=== PATIENT | male | born 1940 | race Caucasian/White ===

== ENCOUNTER 2017-08-20 07:14 | Outpatient (CLI) | payer MEDICARE, OTHER ==
[~2017-08-20] VITALS: Ht 180.3 cm; Wt 95.3 kg
[2017-08-20] MEDS ORDERED: ROSU20TA30 PO (15:39)
[2017-08-20] MEDS ORDERED: GABA-488 PO (15:55)
[2017-08-20] MEDS ORDERED: IBUP-1780 PO (15:55)
[2017-08-20] MEDS ORDERED: ASPI-586 PO (15:55)
[2017-08-20] MEDS ORDERED: METO-387 PO (15:55)
[2017-08-20] MEDS ORDERED: OMEP20CA12 PO (15:55)
== END 2017-08-20 15:57 ==
LOC: PREOP 07:14
PROVIDERS: ATTEND Surgery
DX: Z01.818 Encounter for other preprocedural examination (principal); K43.9 Ventral hernia without obstruction or gangrene

== ENCOUNTER 2017-08-26 07:17 | Day surgery (SDC) | payer MEDICARE ==
[~2017-08-26] VITALS: Ht 180.3 cm; Wt 95.3 kg
[~2017-08-26 07:17] MED LIST: ASPI-586 PO; GABA-488 PO; IBUP-1780 PO; METO-387 PO; OMEP20CA12 PO; ROSU20TA30 PO
[2017-08-26 07:40] VITALS: BP 160/81
--- NOTE | 2017-08-26 07:52 | Progress Note-Pre Operative ---
Pre-Operative Progress Note H&P Reviewed The H&P was reviewed, patient examined and no changes noted. Date Seen by Provider: Aug 17, 2017 Time Seen by Provider: 16:00 Date H&P Reviewed: Aug 26, 2017 Time H&P Reviewed: 07:52 Pre-Operative Diagnosis: Ventral hernia SREEDHAR VEGA MD Aug 26, 2017 7:52 am
[2017-08-26 07:53] LABS: BASOPHILS % (AUTO) 1 % (0-10); EOSINOPHILS # (AUTO) 0.1 10^3/uL (0.0-0.3); EOSINOPHILS % (AUTO) 2 % (0-10); HEMATOCRIT 38 % (40-54); HEMOGLOBIN 13.4 G/DL (13.3-17.7); LYMPHOCYTES % (AUTO) 35 % (12-44); MEAN CORPUSCULAR HEMOGLOBIN 33 PG (25-34); MEAN CORPUSCULAR HGB CONC 35 G/DL (32-36); MEAN CORPUSCULAR VOLUME 94 FL (80-99); MEAN PLATELET VOLUME 10.3 FL (7.4-10.4); MONOCYTES # (AUTO) 0.6 X 10^3 (0.0-1.0); MONOCYTES % (AUTO) 20 % (0-12); NEUTROPHILS # (AUTO) 1.3 X 10^3 (1.8-7.8); NEUTROPHILS % (AUTO) 43 % (42-75); PLATELET COUNT 140 10^3/uL (130-400); RED BLOOD COUNT 4.03 10^6/uL (4.35-5.85); RED CELL DISTRIBUTION WIDTH 12.3 % (10.0-14.5); WHITE BLOOD COUNT 2.9 10^3/uL (4.3-11.0)
[2017-08-26] MEDS ORDERED: ACETAMINOPHEN 500 MG TAB (TYLENOL) PO ONE ×2 (08:00→11:30)
[2017-08-26] MEDS ORDERED: ONDANSETRON 4 MG/2 ML (SDV) Z0FRAN IVP ONE (08:00)
[2017-08-26] MEDS ORDERED: oxyCODONE ER 10 MG (OxyCONTIN CR) TAB PO ONE ×2 (08:00→11:30)
[2017-08-26] MEDS ORDERED: FAMOTIDINE 20MG/2ML IV (PEPCID) IVP ONE (08:00)
[2017-08-26] MEDS ORDERED: CELECOXIB 100 MG (CeleBREX) CAP PO ONE ×2 (08:00→11:30)
[2017-08-26] MEDS ORDERED: PREGABALIN 75 MG (LYRICA) CAP PO ONE ×2 (08:00→11:30)
[2017-08-26] MEDS ORDERED: morphine INJ 10 MG/ML 1ML (SYR OR VIAL) IV PRN ×2 (08:00→11:30)
[2017-08-26] MEDS ORDERED: ceFAZolin 2 GM IV Premixed 50 ML IV ONE (08:00)
[2017-08-26 08:22] LABS: BAND NEUTROPHILS 0 %; LYMPHOCYTES % (MANUAL) 29 %; NEUTROPHILS % (MANUAL) 51 %
[2017-08-26] MEDS: LACTATED RINGERS 1,000 ML IV PRN ×2 (08:22→10:20)
[2017-08-26 08:23] LABS: BASOPHILS % (MANUAL) 1 %; ELLIPT/OVALOCYTES SLIGHT; EOSINOPHILS % (MANUAL) 3 %; MONOCYTES % (MANUAL) 16 %
[2017-08-26] MEDS ORDERED: KETAMINE HCL 100 MG/ML 5 ML VIAL ONE (09:32)
[2017-08-26] MEDS ORDERED: proPOfol 200 MG/20 ML (DIPRIVAN) VIAL IV ONE (09:32)
[2017-08-26] MEDS ORDERED: LIDOCAINE PF 0.5% 50 ML (XYLOCAINE) VIAL ONE (09:32)
[2017-08-26] MEDS ORDERED: DEXAMETHASONE 10 MG/ML (DECADRON) 1 ML VIAL ONE (09:32)
[2017-08-26] MEDS ORDERED: SEVOFLURANE (ULTANE) 15 ML INHAL SOLN ONE (09:32)
[2017-08-26] MEDS ORDERED: ROCURONIUM 50 MG/5 ML (ZEMURON) VIAL IV ONE ×2 (09:32→10:50)
[2017-08-26] MEDS ORDERED: MIDAZOLAM 2 MG/2 ML (VERSED) VIAL ONE (09:33)
[2017-08-26] MEDS ORDERED: BUP/EPI 0.5% 1:200,000 (SENSORCAINE) 30 ML VIAL ONE (09:36)
[2017-08-26] MEDS ORDERED: NEOSTIGMINE (BLOXIVERZ ) 1 MG/1ML 10 ML VIAL ONE (10:50)
[2017-08-26] MEDS ORDERED: GLYCOPYRROLATE 0.2 MG/ML (ROBINUL) 2 ML VIAL ONE (10:50)
--- NOTE | 2017-08-26 11:26 | Operative Report ---
Operative Report Date of Procedure/Surgery Aug 26, 2017 Surgeon (s) SREEDHAR VEGA MD Choir Singer (s): N/A Post-Operative Diagnosis Same Procedure Performed Robotic assisted repair with mesh Description of Procedure Anesthesia Type: General Estimated blood loss (mL): Minimal Specimen(s) collected/removed None Description of the Procedure Indication for the procedure: This gentleman presented with a symptomatic ventral hernia over his epigastric region. He was offered repair using minimally invasive technique robotic assistance and reinforcement with mesh. Informed consent was obtained after reviewing the operative details and complications of hematoma, infection of the mesh, recurrence of the hernia and cardiorespiratory dysfunction. Description of the procedure: He was placed supine on the operative table and general anesthesia induced using an endotracheal tube. 2 g of Ancef were ministered intravenously as prophylaxis against wound infection. Sequential compression devices were placed around his legs, to minimize the risk of venous thrombosis. Abdomen was prepared and draped in the usual sterile manner. Pneumoperitoneum was established using a Veress needle introduced over the left subcostal margin. Intra-abdominal pressure was maintained at 15 mmHg, using carbon dioxide insufflation. A 12 mm trocar was placed and anatomy visualized using the 30, a dimensional high-definition laparoscope associated with Nelbee system. Under direct view, I placed another 12 mm trocar to the left of the umbilicus, avoiding the inferior epigastric vessels, followed by an additional 8 mm trocars over each side of the abdomen. The robotic system was then docked place. Laparoscopic survey confirmed a 2 cm defect and epigastric region. The surrounding preperitoneal fat and part of the falciform ligament where excised using hook cautery to allow secure closure of the defect and reinforcement with mesh. The defect was then closed using a 0, nonabsorbable V LOC suture with the robotic assistance. It was reinforced with a polypropylene mesh measuring 11.2 cm in diameter him a connected with a self-retaining balloon system. Balloon was inflated, holding the mesh to facilitate suturing. The edges of the mesh were secured to the fascia using 20V LOC sutures using robotic assistance. Hemostasis was satisfactory the operation concluded. The fascia over the 12 mm incisions was closed using #1 Vicryl. Skin incisions were closed using 4-0 Vicryl, in a subcuticular fashion. 0.5 percent Marcaine with epinephrine was infiltrated along the incisions, both pre-preemptively and at the conclusion of the operation. He tolerated the procedure well, was extubated in the operating room and taken to the recovery room in a stable condition. Findings of the Procedure See op report Allergies and Home Medications Allergies Coded Allergies: No Known Drug Allergies (Unverified , 08/20/17) Home Medications Aspirin 81 Mg Tablet.dr, 81 MG PO DAILY, (Reported) Gabapentin 300 Mg Capsule, 300 MG PO BID, (Reported) Ibuprofen 800 Mg Tablet, 800 MG PO Q8H PRN for PAIN, (Reported) Metoprolol Succinate 25 Mg Tab.er.24h, 12.5 MG PO BID, (Reported) Omeprazole 20 Mg Capsule.dr, 20 MG PO BID, (Reported) Rosuvastatin Calcium 20 Mg Tablet, 20 MG PO DAILY, (Reported) SREEDHAR VEGA MD Aug 26, 2017 11:26 am
[2017-08-26] MEDS ORDERED: ACHD5005 PO (11:29)
--- NOTE | 2017-08-26 11:31 | Discharge Inst-Simple/Standard ---
Discharge Inst-Standard Discharge Medications New, Converted or Re-Newed RX: RX on Chart Patient Instructions/Follow Up Plan of Care/Instructions/FU: Band-Aids of in a.m. Follow-up in 4 weeks Activity as Tolerated: No Goal: No lifting over 10 pounds Discharge Diet: No Restrictions SREEDHAR VEGA MD Aug 26, 2017 11:31 am
[2017-08-26] MEDS: morphine INJ 10 MG/ML 1ML (SYR OR VIAL) IVP PRN ×2 (11:55→12:00)
[2017-08-26] MEDS ORDERED: ONDANSETRON 4 MG/2 ML (SDV) Z0FRAN IVP PRN (12:00)
[2017-08-26 12:30] VITALS: BP 155/81
[2017-08-26] MEDS ORDERED: ROSU40TA21 PO (13:17)
[2017-08-26] MEDS ORDERED: METO-333 PO (13:17)
[2017-08-26] MEDS: KETOROLAC 30 MG/ML VIAL IV SCH ×2 (14:09→20:34)
[2017-08-26 16:00] VITALS: BP 134/61
[2017-08-26] MEDS ORDERED: RT-ALBUTEROL/IPRATROPIUM 3 ML (DUONEB) VIAL ONE (18:54)
[2017-08-26 19:39] VITALS: BP 95/56
[2017-08-26] MEDS ORDERED: GABAPENTIN 300 MG (NEURONTIN) CAP ONE (20:24)
[2017-08-26 20:30] VITALS: BP 116/73
[2017-08-26] MEDS: GABAPENTIN 300 MG (NEURONTIN) CAP PO SCH (20:33)
[2017-08-26] MEDS: meTOprolol TARTRATE 25 MG (LOPRESSOR) TABLET PO SCH (20:33)
[2017-08-26] MEDS ORDERED: ROSUVASTATIN 20 MG (CRESTOR) TABLET PO SCH (21:00)
[2017-08-26] MEDS ORDERED: PANTOPRAZOLE 20 MG TABLET (PROTONIX) PO SCH (21:00)
[2017-08-26] MEDS ORDERED: OMEPRAZOLE 20 MG (PriLOSEC) CAP NON-FORMULARY PO SCH (21:00)
[2017-08-26] MEDS ORDERED: NON-FORMULARY MEDICATION 1 EA EA (Rosuvastatin Calcium 20 MG) PO SCH (21:00)
[2017-08-27 00:27] VITALS: BP 95/61
[2017-08-27] MEDS: KETOROLAC 30 MG/ML VIAL IV SCH ×2 (01:56→07:32)
[2017-08-27 04:16] VITALS: BP 110/66
--- NOTE | 2017-08-27 06:55 | Anesthesia-General Post-Op ---
General Patient Condition Mental Status/LOC: Same as Preop Cardiovascular: Satisfactory Nausea/Vomiting: Absent Respiratory: Satisfactory Pain: Controlled Complications: Absent Post Op Complications Complications None Follow Up Care/Instructions Patient Instructions None needed. Anesthesia/Patient Condition Patient Condition Patient is doing well, no complaints, stable vital signs, no apparent adverse anesthesia problems. No complications reported per nursing. ALMA KANG CRNA Aug 27, 2017 06:55
[2017-08-27] MEDS: GABAPENTIN 300 MG (NEURONTIN) CAP PO SCH (07:32)
[2017-08-27] MEDS: meTOprolol TARTRATE 25 MG (LOPRESSOR) TABLET PO SCH (07:32)
[2017-08-27 07:57] VITALS: BP 111/56
[2017-08-27] MEDS ORDERED: ASPIRIN E.C. 81 MG (ECOTRIN) TAB PO SCH (09:00)
--- NOTE | 2017-08-27 10:47 | Progress Note-Standard ---
Standard Progress Note Progress Notes/Assess & Plan Date Seen by Provider: Aug 27, 2017 Time Seen by Provider: 10:46 Progress/Assessment & Plan doing well. Ambulating independently and tolerating a regular diet. Incisions dry. Could be discharged home Final Diagnosis ventral hernia SREEDHAR VEGA MD Aug 27, 2017 10:47 am
--- NOTE | 2017-08-27 10:48 | Discharge Inst-Simple/Standard ---
Discharge Inst-Standard Discharge Medications New, Converted or Re-Newed RX: RX on Chart Patient Instructions/Follow Up Plan of Care/Instructions/FU: Follow up in a month. Incentive spirometry Activity as Tolerated: No Goal: No lifting over 10 pounds Discharge Diet: No Restrictions SREEDHAR VEGA MD Aug 27, 2017 10:48 am
[2017-08-27 11:04] VITALS: BP 111/56
== END 2017-08-27 11:00 | disposition home or self-care (01) ==
LOC: SDC 07:17 → 4TH 13:13 → SDC 08-27 11:00
PROVIDERS: ATTEND Surgery
DX: K43.9 Ventral hernia without obstruction or gangrene (principal); Z11.2 Encounter for screening for other bacterial diseases; I10 Essential (primary) hypertension; I25.10 Atherosclerotic heart disease of native coronary artery without angina pectoris; E78.5 Hyperlipidemia, unspecified; Z95.5 Presence of coronary angioplasty implant and graft; Z87.891 Personal history of nicotine dependence; G62.9 Polyneuropathy, unspecified; K21.9 Gastro-esophageal reflux disease without esophagitis; Z79.82 Long term (current) use of aspirin; Z79.899 Other long term (current) drug therapy
CPT/HCPCS: 36415; 85007; 85027; 87081; 94664